=== PATIENT | female | born 1995 | race Caucasian/White ===

== ENCOUNTER 2019-03-31 20:00 | Emergency (ER) | payer BC, MEDICARE ==
[~2019-03-31] VITALS: Ht 170.2 cm; Wt 100.0 kg
[2019-03-31] MEDS ORDERED: HALOPERIDOL LACTATE 5MG/ML VIAL IM STA (20:43)
[2019-03-31 20:56] LABS: BASOPHILS % 0.4 % (0.0-2.0); EOSINOPHILS % 0.4 % (0.0-5.0); HEMATOCRIT. 37.7 % (36.0-48.0); HEMOGLOBIN. 12.3 g/dL (12.0-16.0); MEAN CORPUSCULAR HEMOGLOBIN 28.4 pg (28.0-32.0); MEAN CORPUSCULAR VOLUME 86.9 fL (81.0-99.0); MEAN PLATELET VOLUME 8.9 fl (7.4-10.4); MONOCYTES % 6.4 % (2.0-8.0); NEUTROPHILS % 83.8 % (40.0-76.0); PLATELET 384 x1000/uL (130-400); RED BLOOD CELL COUNT 4.34 mill/uL (4.2-5.4); RED CELL DISTRIBUTION WIDTH 14.8 % (11.6-14.6)
[2019-03-31 21:02] LABS: CHLORIDE 104 mEq/L (98-107)
[2019-03-31 21:06] LABS: ETHANOL BLOOD < 10 mg/dL
[2019-03-31 21:57] LABS: CLARITY URINE CLEAR (CLEAR); COLOR URINE YELLOW (YELLOW); KETONES URINE 1+ (NEGATIVE); LEUKOCYTE ESTERASE URINE NEGATIVE (NEGATIVE); NITRITE URINE NEGATIVE (NEGATIVE); OCCULT BLOOD URINE NEGATIVE (NEGATIVE); PROTEIN URINE NEGATIVE (NEGATIVE); SPECIFIC GRAVITY URINE 1.009 (1.005-1.030); UROBILINOGEN URINE 0.2 E.U./dL (0.2-1.0)
[2019-03-31 22:16] LABS: *AMPHETAMINES SCREEN URINE NEGATIVE (NEGATIVE); *BARBITURATES SCREEN URINE NEGATIVE (NEGATIVE); *COCAINE SCREEN URINE NEGATIVE (NEGATIVE); METHADONE URINE SCREEN NEGATIVE (NEGATIVE); OPIATES URINE SCREEN NEGATIVE (NEGATIVE)
[2019-03-31 22:17] LABS: CANNABINOID URINE SCREEN NEGATIVE (NEGATIVE); PHENCYCLIDINE URINE SCREEN NEGATIVE (NEGATIVE)
[2019-03-31 22:18] LABS: *BENZODIAZEPINES SCREEN URINE PRESUMTIVE POSITIVE (NEGATIVE)
[2019-04-01] MEDS ORDERED: HALOPERIDOL LACTATE 5MG/ML VIAL IM ONE ×2 (01:45→21:45)
[2019-04-01] MEDS ORDERED: LORAZEPAM 1MG TABLET PO ONE ×3 (06:45→21:45)
[2019-04-01] MEDS: OLANZAPINE 10MG TABLET PO SCH (09:12)
[2019-04-02] MEDS ORDERED: OLANZAPINE 10 MG/VIAL IM ONE (01:00)
[2019-04-02 11:42] LABS: BASOPHILS % 0.7 % (0.0-2.0); EOSINOPHILS % 4.3 % (0.0-5.0); HEMATOCRIT. 36.9 % (36.0-48.0); LYMPHOCYTES % 23.2 % (20.0-50.0); MEAN CORPUSCULAR HEMOGLOBIN 28.5 pg (28.0-32.0); MEAN CORPUSCULAR VOLUME 87.5 fL (81.0-99.0); MEAN PLATELET VOLUME 8.7 fl (7.4-10.4); MONOCYTES % 9.4 % (2.0-8.0); NEUTROPHILS % 62.4 % (40.0-76.0); PLATELET 387 x1000/uL (130-400); RED BLOOD CELL COUNT 4.21 mill/uL (4.2-5.4); RED CELL DISTRIBUTION WIDTH 14.6 % (11.6-14.6)
[2019-04-02] MEDS ORDERED: SODIUM CHLORIDE 0.9% 1,000 ML IV ONE (11:45)
[2019-04-02 11:46] LABS: CLARITY URINE CLEAR (CLEAR); COLOR URINE YELLOW (YELLOW); KETONES URINE NEGATIVE (NEGATIVE); LEUKOCYTE ESTERASE URINE TRACE (NEGATIVE); NITRITE URINE NEGATIVE (NEGATIVE); OCCULT BLOOD URINE 1+ (NEGATIVE); PH URINE 6.5 (4.5-8.0); PROTEIN URINE NEGATIVE (NEGATIVE); SPECIFIC GRAVITY URINE 1.009 (1.005-1.030); UROBILINOGEN URINE 0.2 E.U./dL (0.2-1.0)
[2019-04-02 11:59] LABS: CHLORIDE 105 mEq/L (98-107)
[2019-04-02 12:07] LABS: CREATINE KINASE 482 IU/L (26-192)
[2019-04-02 12:12] LABS: *BARBITURATES SCREEN URINE NEGATIVE (NEGATIVE)
[2019-04-02 12:13] LABS: *AMPHETAMINES SCREEN URINE NEGATIVE (NEGATIVE); *COCAINE SCREEN URINE NEGATIVE (NEGATIVE); METHADONE URINE SCREEN NEGATIVE (NEGATIVE); OPIATES URINE SCREEN NEGATIVE (NEGATIVE); PHENCYCLIDINE URINE SCREEN NEGATIVE (NEGATIVE)
[2019-04-02 12:14] LABS: CANNABINOID URINE SCREEN NEGATIVE (NEGATIVE)
[2019-04-02 12:27] LABS: *BENZODIAZEPINES SCREEN URINE PRESUMTIVE POSITIVE (NEGATIVE)
[2019-04-02] MEDS ORDERED: ZIPRASIDONE MESYLATE 20MG/VIAL IM ONE (13:15)
[2019-04-02] MEDS ORDERED: LORAZEPAM 2MG/ML CPJ IV ONE (13:15)
[2019-04-02] MEDS ORDERED: GUAIFENESIN 200MG/10ML SUGAR FREE UDC PO PRN (18:30)
[2019-04-02] MEDS ORDERED: ACETAMINOPHEN 325MG TABLET PO PRN (18:30)
[2019-04-02] MEDS ORDERED: DOCUSATE SODIUM 100MG CAPSULE PO PRN (18:30)
[2019-04-02] MEDS ORDERED: ACETAMINOPHEN 650MG SUPP PR PRN (18:30)
[2019-04-02] MEDS ORDERED: CLONIDINE 0.1MG TABLET PO PRN (18:30)
[2019-04-02] MEDS ORDERED: HYDROCODONE/ACETAMINOPHEN 5/325MG TABLET PO PRN (18:30)
[2019-04-02] MEDS ORDERED: IPRATROPIUM/ALBUTEROL 0.5-3(2.5)MG/3ML NEB INH PRN (18:30)
[2019-04-02] MEDS ORDERED: DIPHENHYDRAMINE 50MG/ML VIAL IV PRN (18:30)
[2019-04-02] MEDS ORDERED: NA PHOS,M-B/NA PHOS,DI-BA ENEMA 118ML PR PRN (18:30)
[2019-04-02] MEDS ORDERED: MAGNESIUM/ALUMINUM HYDROXIDE/SIMETHICONE 30ML UDC PO PRN (18:30)
[2019-04-02] MEDS ORDERED: ACETAMINOPHEN 650MG/20.3ML UDC GT PRN (18:30)
[2019-04-02] MEDS ORDERED: BUSPIRONE HCL 5MG TABLET PO ONE (19:30)
[2019-04-02] MEDS: LITHIUM CARBONATE 150 MG CAPSULE PO SCH (19:45)
[2019-04-02] MEDS ORDERED: SODIUM CHLORIDE 0.9% INJ 3ML FLUSH IVF SCH (22:00)
[2019-04-03] MEDS ORDERED: LORAZEPAM 2MG/ML CPJ IV ONE (00:15)
[2019-04-03] MEDS ORDERED: LORAZEPAM 1MG TABLET PO ONE ×2 (00:30→22:00)
[2019-04-03 05:25] LABS: BASOPHILS % 0.7 % (0.0-2.0); EOSINOPHILS % 4.3 % (0.0-5.0); HEMATOCRIT. 37.3 % (36.0-48.0); HEMOGLOBIN. 12.2 g/dL (12.0-16.0); MEAN CORPUSCULAR HEMOGLOBIN 28.9 pg (28.0-32.0); MEAN CORPUSCULAR VOLUME 88.2 fL (81.0-99.0); MEAN PLATELET VOLUME 8.9 fl (7.4-10.4); PLATELET 391 x1000/uL (130-400); RED BLOOD CELL COUNT 4.23 mill/uL (4.2-5.4); RED CELL DISTRIBUTION WIDTH 15.1 % (11.6-14.6)
[2019-04-03 05:32] LABS: CHLORIDE 109 mEq/L (98-107)
[2019-04-03 05:39] LABS: LDL CHOLESTEROL 94 mg/dL (5-100)
[2019-04-03 05:40] LABS: HDL CHOLESTEROL 51 mg/dL (40-59)
[2019-04-03] MEDS: OLANZAPINE 10MG TABLET PO SCH (08:42)
[2019-04-03] MEDS: LITHIUM CARBONATE 150 MG CAPSULE PO SCH ×2 (09:30→17:00)
[2019-04-03] MEDS ORDERED: BUSPIRONE HCL 5MG TABLET PO ONE (13:45)
[2019-04-03] MEDS ORDERED: LORAZEPAM 1MG TABLET PO NR (23:15)
[2019-04-04] MEDS ORDERED: OLANZAPINE 10MG TABLET PO SCH (00:30)
[2019-04-04] MEDS ORDERED: TRAZODONE HCL 50MG TABLET PO STA (03:49)
[2019-04-04] MEDS ORDERED: LITHIUM CARBONATE 150 MG CAPSULE PO STA (06:24)
[2019-04-04] MEDS: LITHIUM CARBONATE 150 MG CAPSULE PO SCH ×2 (09:00→16:14)
[2019-04-04] MEDS ORDERED: ZIPRASIDONE MESYLATE 20MG/VIAL IM ONE (12:00)
[2019-04-04] MEDS ORDERED: STERILE WATER FOR INJECTION 10ML VIAL ONE (12:22)
[2019-04-04] MEDS ORDERED: LORAZEPAM 1MG TABLET PO ONE (15:30)
[2019-04-04] MEDS ORDERED: LORAZEPAM 1MG TABLET PO NR (17:30)
[2019-04-04] MEDS ORDERED: OLANZAPINE 10MG TABLET PO NR (23:15)
[2019-04-05 10:59] VITALS: BP 123/79
== END 2019-04-05 11:05 ==
LOC: ER 20:00 → EDBEDREQ 04-02 16:30 → EDBEDREQSVC 04-02 18:49 → CANRESERV 04-02 19:45 → ENRESERV 04-02 19:45 → CANBEDREQ 04-03 04:02 → ER 04-05 11:05
DX: N17.0 Acute kidney failure with tubular necrosis (principal); N17.9 Acute kidney failure, unspecified; F30.9 Manic episode, unspecified; R45.851 Suicidal ideations; R74.0 Nonspecific elevation of levels of transaminase and lactic acid dehydrogenase [LDH]; R10.9 Unspecified abdominal pain; E86.0 Dehydration; M60.9 Myositis, unspecified; Z78.1 Physical restraint status; Z90.49 Acquired absence of other specified parts of digestive tract; Z91.14 Patient's other noncompliance with medication regimen
CPT/HCPCS: 36415; 71045; 74176; 80053; 80178; 80305; 80320; 81003; 81025; 82248; 82962; 85025; 93005; 96372; 99284; A4216; J1630; J2060; J3486; J3490; J7030; 80076; G0480